=== PATIENT | female | born 1990 ===

== ENCOUNTER 2017-06-11 01:11 | Inpatient (IN) | payer OTHER ==
[2017-06-11] MEDS ORDERED: Sodium Chloride 0.9% 1,000 ML IV STA ×2 (01:37→06:45)
--- NOTE | 2017-06-11 01:54 | ED PDOC ---
HPI: Back Time Seen by Provider: 06/11/17 01:29 Chief Complaint (Nursing): Back Pain Chief Complaint (Provider): flank pain History Per: Patient History/Exam Limitations: no limitations Onset/Duration Of Symptoms: Days (2), Waxing/Waning Current Symptoms Are (Timing): Still Present Additional History Per: Patient Additional Complaint(s): 27 y/o female presents with right flank pain x 2 days. Patient notes pain to start in right back and radiate to right abdomen. Denies fever, nausea/vomiting , chest pain, shortness of breath, palpitations, changes in bowel movements, dysuria, hematuria. No medication taken for pain relief thus far. Past Medical History Reviewed: Historical Data, Nursing Documentation, Vital Signs Vital Signs: Last Vital Signs Temp 98.6 F 06/11/17 01:32 Pulse 76 06/11/17 01:32 Resp 18 06/11/17 01:32 BP 120/78 06/11/17 01:32 Pulse Ox 100 06/11/17 01:32 - Medical History PMH: No Chronic Diseases - Surgical History Surgical History: Tonsillectomy - Family History Family History: States: Unknown Family Hx - Living Arrangements Living Arrangements: With Family - Home Medications Home Medications: Ambulatory Orders Medication Instructions Recorded No Known Home Med 06/11/17 - Allergies Allergies/Adverse Reactions: Allergies Allergy/AdvReac Type Severity Reaction Status Date / Time No Known Allergies Allergy Verified 06/11/17 01:32 Review of Systems ROS Statement: Except As Marked, All Systems Reviewed And Found Negative Gastrointestinal: Positive for: Abdominal Pain Musculoskeletal: Positive for: Back Pain Physical Exam - Reviewed Nursing Documentation Reviewed: Yes Vital Signs Reviewed: Yes - Physical Exam Appears: Positive for: Well, Non-toxic, No Acute Distress Head Exam: Positive for: ATRAUMATIC, NORMAL INSPECTION, NORMOCEPHALIC Skin: Positive for: Normal Color Eye Exam: Positive for: Normal appearance ENT: Positive for: Normal ENT Inspection Cardiovascular/Chest: Positive for: Regular Rate, Rhythm Respiratory: Positive for: Normal Breath Sounds Gastrointestinal/Abdominal: Positive for: Bowel Sounds, Soft, Tenderness (right flank) Back: Positive for: R CVA Tenderness Extremity: Positive for: Normal ROM Neurologic/Psych: Positive for: Alert, Oriented - Laboratory Results Result Diagrams: 06/11/17 01:39 06/11/17 01:39 - ECG O2 Sat by Pulse Oximetry: 100 - Progress ED Course And Treament: labs, urine, CT renal protocol EXAM: CT Abdomen and Pelvis Without Intravenous Contrast CLINICAL HISTORY: 27 years old, female; Pain; Abdominal pain; Flank; Right; Additional info: Right flank pain TECHNIQUE: Axial computed tomography images of the abdomen and pelvis without intravenous contrast. This CT exam was performed using one or more of the following dose reduction techniques: automated exposure control, adjustment of the mA and/or kV according to patient size, and/ or use of iterative reconstruction technique. Coronal and sagittal reformatted images were created and reviewed. COMPARISON: No relevant prior studies available. FINDINGS: Lower thorax: No acute findings. ABDOMEN: Liver: Unremarkable. Gallbladder and bile ducts: No calcified stones. No ductal dilation. Pancreas: Unremarkable. No ductal dilation. Spleen: Mild splenomegaly, AP dimension. Adrenals: No mass. Kidneys and ureters: Small calculus within RIGHT kidney. No hydronephrosis. Stomach and bowel: No definite mural thickening. No obstruction. Appendix: No findings to suggest acute appendicitis. PELVIS: Bladder: Unremarkable. No stones. Reproductive: Unremarkable as visualized. ABDOMEN and PELVIS: Intraperitoneal space: No significant fluid collection. No free air. Bones/joints: No acute fracture. Soft tissues: Unremarkable. Vasculature: Unremarkable. No aneurysm. Lymph nodes: No pathologically enlarged lymph nodes. IMPRESSION: 1. Nonobstructing renal calculus. 2. Incidental/non-acute findings are described above On re-eval, patient still with pain; tramadol PO ordered Patient notes improved after tramadol, but now with localized "burning" in RUQ. Patient offered u/s to rule out noncalcified gallstones/acute biliary process. Patient agreeable to stay. ED OBSERVATION Date of observation admission: 06/11/17 Time of observation admission: 03:39 - Observation admission statement Patient is being placed in observation because:: abdominal pain - Goals of Observation Goals of observation are:: obtain right upper quadrant u/s to rule out noncalcified gallbladder stones - Progress Note Progress Note: 06/11/17 03:40 Patient resting comfortably 06/11/17 05:00 Patient sleeping Disposition - Clinical Impression Clinical Impression: Rt flank pain - Patient ED Disposition Is Patient to be Admitted: No - Disposition Disposition: Transfer of Care Disposition Time: 06:00 Condition: STABLE Patient Signed Over To: Orbelyan,Gerasim A Handoff Comments: pending u/s
[2017-06-11 02:06] LABS: ALB/GLOB RATIO 1.1 (1.0-2.1); ALBUMIN 3.2 g/dL (3.5-5.0); ALT/SGPT 28 U/L (9-52); AST/SGOT 18 U/L (14-36); BLOOD UREA NITROGEN 9 mg/dl (7-17); CALCIUM 7.3 mg/dL (8.4-10.2); GFR AFRICAN-AMERICAN > 60; GFR NON-AFRICAN AMERICAN > 60; LIPASE 126 U/L (23-300)
[2017-06-11 02:11] LABS: SQUAMOUS EPITHIAL 2 /hpf (0-5); URINE BACTERIA OCC (<OCC); URINE BILIRUBIN NEGATIVE (NEGATIVE); URINE BLOOD SMALL (NEGATIVE); URINE CLARITY CLOUDY (Clear); URINE COLOR YELLOW (YELLOW); URINE GLUCOSE (UA) NEG (Normal); URINE LEUKOCYTE ESTERASE SMALL Leu/uL (Negative); URINE NITRATE NEGATIVE (NEGATIVE); URINE PROTEIN 30 mg/dL (NEGATIVE); URINE UROBILINOGEN 0.2-1.0 mg/dL (0.2-1.0)
[2017-06-11 02:27] LABS: HEMOGLOBIN 13.5 g/dL (12.0-16.0); RBC 4.8 Mil/uL (3.80-5.20); WHITE BLOOD COUNT 12.2 K/uL (4.8-10.8)
[2017-06-11 02:28] LABS: LYMPH % 34.2 % (20.0-40.0); MEAN CELL VOLUME 84.8 fl (81.0-99.0); MEAN PLATELET VOLUME 8.8 fl (7.2-11.7); MONO % 6.2 % (0.0-10.0); NEUT % 58.1 % (50.0-75.0); RED CELL DISTRIBUTION WIDTH 13.5 % (11.5-14.5)
[2017-06-11 02:29] LABS: BASO # 0.1 K/uL (0.0-0.2); BASO % 0.5 % (0.0-2.0); EOS # 0.1 K/uL (0.0-0.7); LYMPH # 4.2 K/uL (1.0-4.3); MONO # 0.8 K/uL (0.0-0.8); NEUT # 7.1 K/uL (1.8-7.0)
[2017-06-11] MEDS ORDERED: Potassium Chloride 20 mEq ER Tab PO ONE ×2 (02:29→02:45)
[2017-06-11] MEDS ORDERED: Oxycodone/Acetaminophen 5/325 mg Tab PO ONE (02:43)
[2017-06-11] MEDS ORDERED: Oxycodone/Acetaminophen 5/325 mg Tab ONE (02:46)
--- NOTE | 2017-06-11 05:53 | ED PDOC ---
- Laboratory Results Result Diagrams: 06/11/17 01:39 06/11/17 01:39 - ECG O2 Sat by Pulse Oximetry: 100 (RA) Pulse Ox Interpretation: Normal Medical Decision Making Medical Decision Making: Receiving Sign Out: Patient signed out to me by Fiorella Gaston PA-C pending RUQ US and final disposition. Scribe Attestation: Documented by Miesha Sherman, acting as a scribe for Yuriy Green MD. Provider Scribe Attestation: All medical record entries made by the Scribe were at my direction and personally dictated by me. I have reviewed the chart and agree that the record accurately reflects my personal performance of the history, physical exam, medical decision making, and the department course for this patient. I have also personally directed, reviewed, and agree with the discharge instructions and disposition. Disposition Discussed With Dr.: Jackson Dominguez Doctor Will See Patient In The: Hospital Counseled Patient/Family Regarding: Studies Performed, Diagnosis - Clinical Impression Clinical Impression: Rt flank pain, Calculus of gallbladder with other cholecystitis and obstruction - POA Present On Arrival: None - Disposition Disposition: Admitted as In-Patient Disposition Time: 07:00 Condition: FAIR ED OBSERVATION Date of observation admission: 06/11/17 Time of observation admission: 03:38 - Observation admission statement Patient is being placed in observation because:: Abdominal pain - Goals of Observation Goals of observation are:: Awaiting RUQ ultrasound. - Progress Note Progress Note: 06/11/17 06:22 Patient resting in room, no acute distress. 06/11/17 06:31 Addendum created by Alex Martinez MD on 06/11/2017 6:32 AM Eastern Time ([place] & [place]) Findings discussed and confirmed with technologist. Initial Report created on 06/11/2017 6:30 AM Eastern Time ([place] & [place]) EXAM: US Abdomen Limited, Right Upper Quadrant CLINICAL HISTORY: 27 years old, female; Pain; Abdominal pain; Generalized; Additional info: Ruq pain TECHNIQUE: Real-time ultrasound of the right upper quadrant with image documentation. COMPARISON: CT - ABD PELVIS W/O PO OR 06/11/2017 1:59:24 AM FINDINGS: Liver: Enlarged, 18.6 cm. Normal echogenicity. No mass. No intrahepatic bile duct dilatation. Gallbladder: Apparent nonmobile 1.7 x 1.3 cm stone within neck. 0.4 cm wall thickness (as per worksheet). No pericholecystic fluid. No sonographic De La O's sign. Common bile duct: No dilatation. No stones. Pancreas: Unremarkable as visualized. Right kidney: Normal echogenicity. No hydronephrosis. IMPRESSION: 1. Cholelithiasis with mild gallbladder wall thickening. Clinical correlation is needed. 2. Incidental/non-acute findings are described above. 06/11/17 06:[address] Dominguez, general surgeon monotype caster who is aware. Patient to be admitted under Dr. Dominguez's service. Call placed to medical or surgical instrument maker. 06/11/17 06:42 Case discussed with medical or surgical instrument maker who is aware of case. The resident will come to ED and evaluate the patient at bedside.
[2017-06-11] MEDS ORDERED: Piperacillin/Tazobact 3.375 GM in Sodium Chloride 0.9% 100 ML IVPB STA (06:37)
[2017-06-11] MEDS ORDERED: Morphine 4 MG/ML VIAL IVP ONE (06:45)
[2017-06-11] MEDS ORDERED: Piperacillin/Tazobact 3.375 gm Inj IVPB ONE ×2 (06:49→16:40)
--- NOTE | 2017-06-11 08:50 | CT ---
PROCEDURE: CT Abdomen and Pelvis without intravenous contrast HISTORY: right flank pain COMPARISON: None. TECHNIQUE: Without contrast.. Contrast Dose: 0 Radiation dose: Total exam DLP = 1099.59 mGy-cm. This CT exam was performed using one or more of the following dose reduction techniques: Automated exposure control, adjustment of the mA and/or kV according to patient size, and/or use of iterative reconstruction technique. FINDINGS: LOWER THORAX: Unremarkable. LIVER: Mild hepatomegaly. The liver measures up to 20.1 cm craniocaudal. Smooth contour. No mass. Normal attenuation. No biliary dilatation. GALLBLADDER AND BILE DUCTS: Unremarkable. PANCREAS: Unremarkable. No gross lesion or ductal dilatation. SPLEEN: Mild splenomegaly. The spleen measures up to 15 cm greatest dimension. No mass. ADRENALS: Unremarkable. No mass. KIDNEYS AND URETERS: Nonobstructing 4 mm right upper pole renal calculus. No left renal calculus. No hydronephrosis. No ureteral calculus. VASCULATURE: Unremarkable. No aortic aneurysm. BOWEL: Mild sigmoid diverticulosis without evidence of diverticulitis. No other abnormal bowel loops. No bowel obstruction. APPENDIX: Not identified. No secondary findings of appendicitis. PERITONEUM: Unremarkable. No free fluid. No free air. LYMPH NODES: No retroperitoneal or pelvic lymphadenopathy. Shotty subcentimeter mesenteric lymph nodes common nonspecific. BLADDER: Suboptimally distended. Grossly unremarkable. REPRODUCTIVE: Unremarkable uterus. BONES: No acute fracture. OTHER FINDINGS: None. IMPRESSION: Nonobstructing 4 mm right upper pole renal calculus. Nonspecific shotty subcentimeter lymph nodes within the small bowel mesenteric. Possible mesenteric adenitis. Mild hepatic splenomegaly. No additional abnormality. Preliminary interpretation of this examination was reported by Tengaged at 2:22 a.m. on 06/11/2017. There is concurrence of this report with the preliminary interpretation.
--- NOTE | 2017-06-11 09:35 | US ---
HISTORY: ruq pain COMPARISON: None. TECHNIQUE: Sonographic evaluation of the right upper quadrant of the abdomen. FINDINGS: LIVER: Measures 18.5 cm in length. Diffusely increased echogenicity of the liver parenchyma. Consistent with fatty infiltration. No mass. Smooth contour. No biliary dilatation. GALLBLADDER: Solitary gallstone identified within the gallbladder neck. No mural thickening. No pericholecystic fluid. Negative sonographic De La O sign. COMMON BILE DUCT: Measures 4 mm. No stones. No dilatation. PANCREAS: Unremarkable as visualized. No mass. No ductal dilatation. RIGHT KIDNEY: Measures 11.5 cm in length. Normal echogenicity. No calculus, mass, or hydronephrosis. AORTA: No aneurysmal dilatation. IVC: Unremarkable. OTHER FINDINGS: None . IMPRESSION: Hepatomegaly with diffuse fatty infiltration. Cholelithiasis with solitary stone in gallbladder neck. No evidence of cholecystitis. Otherwise unremarkable examination. Preliminary interpretation of this examination was reported by Anafore at 6:30 a.m. on 06/11/2017. There is concurrence of this report with the preliminary interpretation.
[2017-06-11] MEDS: Sodium Chloride 0.9% 1,000 ML IV SCH ×2 (13:04→23:34)
--- NOTE | 2017-06-11 13:10 | CP.PCM.PCO ---
Physician Communication Note - Physician Communication Note Physician Communication Note: OR today at 3PM for osiris calderon
--- NOTE | 2017-06-11 13:12 | CP.PCM.HP ---
History of Present Illness - History of Present Illness History of Present Illness: Surgery: Dr. Dominguez CC: 27F w. no pmh presents to ED w. RUQ / R back pain. Pt states that the pain began on Thursday. Pain is intermittent. Described as sharp. Pain is not related to diet. She denies any alleviating or aggravating factors. She denies N/V/D. No F/C. No ABREU/blurred vision. No CP/palpiations. No SOB/cough. No hematuria/ dysuria. U/S done in ED showed gallstone impacted in gallbladder neck. PMH: none PSH: tonsils Meds: None NKDA Social: No ETOH/tobacco/drugs Fhx: non-contributory Present on Admission - Present on Admission Any Indicators Present on Admission: No Review of Systems - Review of Systems All systems: reviewed and no additional remarkable complaints except (HPI) Past Patient History - Past Social History Smoking Status: Never Smoked - CARDIAC Hx Cardiac Disorders: No - MUSCULOSKELETAL/RHEUMATOLOGICAL Hx Falls: No - PSYCHIATRIC Hx Substance Use: No - SURGICAL HISTORY Hx Tonsillectomy: Yes Meds Allergies/Adverse Reactions: Allergies Allergy/AdvReac Type Severity Reaction Status Date / Time No Known Allergies Allergy Verified 06/11/17 01:32 Physical Exam - Constitutional Appears: Non-toxic, No Acute Distress - Head Exam Head Exam: ATRAUMATIC, NORMOCEPHALIC - Eye Exam Eye Exam: EOMI. absent: Scleral icterus - ENT Exam ENT Exam: Mucous Membranes Moist, Normal External Ear Exam - Neck Exam Neck exam: Positive for: Full Rom - Respiratory Exam Respiratory Exam: NORMAL BREATHING PATTERN. absent: Accessory Muscle Use, Respiratory Distress - GI/Abdominal Exam GI & Abdominal Exam: Soft, Tenderness (RUQ, +De La O). absent: Distended, Firm, Guarding, Rigid - Extremities Exam Extremities exam: Negative for: calf tenderness, pedal edema - Neurological Exam Neurological exam: Alert, Oriented x3 Results - Vital Signs Recent Vital Signs: Last Vital Signs Temp 98.6 F 06/11/17 10:10 Pulse 63 06/11/17 10:10 Resp 18 06/11/17 10:10 BP 110/54 L 06/11/17 10:10 Pulse Ox 99 06/11/17 10:10 - Labs Result Diagrams: 06/11/17 01:39 06/11/17 01:39 - Imaging and Cardiology US - abdomen Status: Image reviewed by me, Report reviewed by me Assessment & Plan - Assessment and Plan (Free Text) Assessment: 27F w. cholecystitis -OR this afternoon for lap yumiko. Risks and benefits d/w pt -NPO -IVF -abx -morphine -zofran -SCDs -d/w attending Zemaitis PGY3
[2017-06-11 14:40] LABS: INR 32.8 (0.9-1.2); PROTHROMBIN TIME 11.3 Seconds (9.8-13.1)
[2017-06-11] MEDS ORDERED: Bupivacaine 0.5% Inj(30mL) ONE (14:57)
[2017-06-11] MEDS ORDERED: Lidocaine 1% Inj (20ml) ONE (14:57)
[2017-06-11] MEDS ORDERED: Lactated Ringer's 1,000 ML IV ONE ×3 (16:33→19:25)
[2017-06-11] MEDS ORDERED: Propofol 10 mg/ml Inj (20 ML) ONE (16:35)
[2017-06-11] MEDS ORDERED: Succinylcholine 200 mg/10 ml Inj IV ONE (16:36)
[2017-06-11] MEDS ORDERED: Midazolam 2 MG/2 ML VIAL ONE (16:36)
[2017-06-11] MEDS ORDERED: Rocuronium 10 mg/ml (5 ml) ONE (16:36)
[2017-06-11] MEDS ORDERED: Neostigmine Methylsulfate 3mg/3ml Syringe IV ONE (17:34)
[2017-06-11] MEDS: Piperacillin/Tazobact 3.375 GM in Sodium Chloride 0.9% 100 ML IVPB SCH ×2 (17:48→21:40)
--- NOTE | 2017-06-11 18:03 | PCM.SURG1 ---
Surgeon's Initial Post Op Note - Surgeon's Notes Surgeon: Dr. Dominguez C D Area Supervisor: Dr. Marroquin PGY3, Dr. Rojas PGY1 Type of Anesthesia: General Endo Anesthesia Administered By: Maisha Pre-Operative Diagnosis: Cholecystitis Operative Findings: Same Post-Operative Diagnosis: Same Operation Performed: Laparoscopic Cholecystectomy Specimen/Specimens Removed: Gallbladder Estimated Blood Loss: EBL {In ML}: 10 Blood Products Given: N/A Drains Used: No Drains Post-Op Condition: Good Date of Surgery/Procedure: 06/11/17 Time of Surgery/Procedure: 18:04
[2017-06-11] MEDS ORDERED: Lactated Ringer's 1,000 ML IV SCH (18:09)
[2017-06-11] MEDS: HYDROmorphone 0.5 mg/0.5 ml ISec IVP PRN ×3 (18:25→19:10)
[2017-06-12] MEDS: Piperacillin/Tazobact 3.375 GM in Sodium Chloride 0.9% 100 ML IVPB SCH (04:30)
[2017-06-12 05:18] VITALS: RESP 20; TEMP 98.4
[2017-06-12] MEDS: Sodium Chloride 0.9% 1,000 ML IV SCH (07:06)
--- NOTE | 2017-06-12 08:28 | CP.PCM.DIS ---
Provider - Provider Date of Admission: 06/11/17 06:40 Attending physician: Jackson Dominguez MD Consults: Surgery: Jayce Dominguez Time Spent in preparation of Discharge (in minutes): 45 Hospital Course - Lab Results Lab Results: Most Recent Lab Values WBC 12.2 K/uL (4.8-10.8) H 06/11/17 01:39 RBC 4.80 Mil/uL (3.80-5.20) 06/11/17 01:39 Hgb 13.5 g/dL (12.0-16.0) 06/11/17 01:39 Hct 40.7 % (34.0-47.0) 06/11/17 01:39 MCV 84.8 fl (81.0-99.0) 06/11/17 01:39 MCH 28.0 pg (27.0-31.0) 06/11/17 01:39 MCHC 33.0 g/dL (33.0-37.0) 06/11/17 01:39 RDW 13.5 % (11.5-14.5) 06/11/17 01:39 Plt Count 261 K/uL (130-400) 06/11/17 01:39 MPV 8.8 fl (7.2-11.7) 06/11/17 01:39 Neut % (Auto) 58.1 % (50.0-75.0) 06/11/17 01:39 Lymph % (Auto) 34.2 % (20.0-40.0) 06/11/17 01:39 Imperial % (Auto) 6.2 % (0.0-10.0) 06/11/17 01:39 Eos % (Auto) 1.0 % (0.0-4.0) 06/11/17 01:39 Baso % (Auto) 0.5 % (0.0-2.0) 06/11/17 01:39 Neut # 7.1 K/uL (1.8-7.0) H 06/11/17 01:39 Lymph # 4.2 K/uL (1.0-4.3) 06/11/17 01:39 Imperial # 0.8 K/uL (0.0-0.8) 06/11/17 01:39 Eos # 0.1 K/uL (0.0-0.7) 06/11/17 01:39 Baso # 0.1 K/uL (0.0-0.2) 06/11/17 01:39 PT 11.3 Seconds (9.8-13.1) 06/11/17 13:58 INR 32.8 (0.9-1.2) H 06/11/17 13:58 APTT 1.0 Seconds (25.6-37.1) L 06/11/17 13:58 Sodium 144 mmol/l (132-148) 06/11/17 01:39 Potassium 3.2 MMOL/L (3.6-5.0) L 06/11/17 01:39 Chloride 116 mmol/L (98-107) H 06/11/17 01:39 Carbon Dioxide 20 mmol/L (22-30) L 06/11/17 01:39 Anion Gap 11 (10-20) 06/11/17 01:39 BUN 9 mg/dl (7-17) 06/11/17 01:39 Creatinine 0.5 mg/dL (0.7-1.2) L 06/11/17 01:39 Est GFR ( Amer) > 60 06/11/17 01:39 Est GFR (Non-Af Amer) > 60 06/11/17 01:39 Random Glucose 89 mg/dL (65-105) 06/11/17 01:39 Calcium 7.3 mg/dL (8.4-10.2) L 06/11/17 01:39 Total Bilirubin 0.3 mg/dl (0.2-1.3) 06/11/17 01:39 AST 18 U/L (14-36) 06/11/17 01:39 ALT 28 U/L (9-52) 06/11/17 01:39 Alkaline Phosphatase 70 U/L (38-126) 06/11/17 01:39 Total Protein 6.2 G/DL (6.3-8.2) L 06/11/17 01:39 Albumin 3.2 g/dL (3.5-5.0) L 06/11/17 01:39 Globulin 2.9 gm/dL (2.2-3.9) 06/11/17 01:39 Albumin/Globulin Ratio 1.1 (1.0-2.1) 06/11/17 01:39 Lipase 126 U/L (23-300) 06/11/17 01:39 Urine Color Yellow (YELLOW) 06/11/17 01:55 Urine Clarity Cloudy (Clear) 06/11/17 01:55 Urine pH 6.0 (5.0-8.0) 06/11/17 01:55 Ur Specific [place] 1.024 (1.003-1.030) 06/11/17 01:55 Urine Protein 30 mg/dL (NEGATIVE) 06/11/17 01:55 Urine Glucose (UA) Neg mg/dL (Normal) 06/11/17 01:55 Urine Ketones Negative mg/dL (NEGATIVE) 06/11/17 01:55 Urine Blood Small (NEGATIVE) 06/11/17 01:55 Urine Nitrate Negative (NEGATIVE) 06/11/17 01:55 Urine Bilirubin Negative (NEGATIVE) 06/11/17 01:55 Urine Urobilinogen 0.2-1.0 mg/dL (0.2-1.0) 06/11/17 01:55 Ur Leukocyte Esterase Small Leann/uL (Negative) 06/11/17 01:55 Urine RBC (Auto) 2 /hpf (0-3) 06/11/17 01:55 Urine Microscopic WBC 3 /hpf (0-5) 06/11/17 01:55 Ur Squamous Epith Cells 2 /hpf (0-5) 06/11/17 01:55 Urine Bacteria Occ (<OCC) H 06/11/17 01:55 - Hospital Course Hospital Course: 27yo F admitted to the hospital for RUQ pain. Found to have cholelithiasis on Abd US and WBC elevated to 12.2. Patient taken to the OR for laparoscopic cholecystectomy. Surgery was uncomplicated. Post-operatively, patient progressed well with no complaints. Patient was cleared for discharge from surgical standpoint. Upon Discharge: Patient is cleared for discharge 1. Follow up with Dr. Dominguez in clinic in 10 days. (Call for appointment) 2. Use pain medication as needed, sparingly 3. You may shower starting tomorrow. Do not remove steri-strips. No soaking, swimming 4. No heavy lifting for 4 weeks 5. You may return to work 6. Return to the ER with any concerning symptoms. New Prescriptions: Toradol 10mg PO q6h #20/0 Discharge Exam - Head Exam Head Exam: ATRAUMATIC, NORMAL INSPECTION, NORMOCEPHALIC - Eye Exam Eye Exam: EOMI, Normal appearance - Respiratory Exam Respiratory Exam: NORMAL BREATHING PATTERN, UNREMARKABLE - Cardiovascular Exam Cardiovascular Exam: absent: JVD - GI/Abdominal Exam GI & Abdominal Exam: Soft, Tenderness (Mild milo-incisional tenderness). absent : Distended, Guarding, Mass, Rebound, Rigid Additional comments: Dressing clean, dry and intact. - Extremities Exam Extremities exam: normal inspection - Neurological Exam Neurological exam: Alert, Normal Gait, Oriented x3 - Psychiatric Exam Psychiatric exam: Normal Affect, Normal Mood - Skin Skin Exam: Dry, Intact, Normal Color, Warm Discharge Plan - Discharge Medications Prescriptions: Ketorolac Tromethamine [Toradol] 10 mg PO Q6 #20 tab - Follow Up Plan Condition: FAIR Disposition: HOME/ ROUTINE Instructions: Gallstones (GEN), How To Wash Your Hands (GEN) Additional Instructions: Patient is cleared for discharge 1. Follow up with Dr. Dominguez in clinic in 10 days. (Call for appointment) 2. Use pain medication as needed, sparingly 3. You may shower starting tomorrow. Do not remove steri-strips. No soaking, swimming 4. No heavy lifting for 4 weeks 5. You may return to work 6. Return to the ER with any concerning symptoms. New Prescriptions: Toradol 10mg PO q6h #20/0 Referrals: Jackson Dominguez MD [Staff Provider] -
[2017-06-12 08:34] VITALS: BP 119/77; PULSE 85; O2SAT 95
--- NOTE | 2017-06-12 17:52 | OP ---
PROCEDURE DATE: 06/11/2017 SURGEON: Dr. Dominguez. PHYSIOTHERAPIST'S ASSISTANT: Dr. Marroquin and Dr. Rojas. ANESTHESIA: General, Dr. Kelly PREOPERATIVE DIAGNOSIS: Cholecystitis. POSTOPERATIVE DIAGNOSIS: Cholecystitis. PROCEDURE: Laparoscopic cholecystectomy. DESCRIPTION OF OPERATION: With the patient in the supine position, under adequate general anesthesia, the abdomen was prepped and draped in the usual sterile manner. Veress needle puncture was performed at the umbilicus with insufflation to 15 cm of water pressure of CO2 and a 10 mm laparoscopic trocar was inserted via an infraumbilical incision. Under direct vision, additional trocars were inserted at the epigastrium and right costal margin. The gallbladder was visualized, it was softly distended, but not acutely inflamed. The gallbladder fundus was grasped and elevated. The infundibulum was grasped and retracted laterally. The cystic duct was identified and dissected. An anterior branch of the cystic artery was identified passing anterior to the cystic duct and this was dissected and then triply clipped and divided to better expose the cystic duct. The cystic duct was then dissected and cleared down towards the common bile duct. The cystic duct was then triply clipped and divided closer to the gallbladder. The posterior branch of the cystic artery was then identified and dissected and this was triply clipped and divided and the gallbladder was dissected free of the liver bed using the electrocautery. The liver bed was inspected for hemostasis and the dissection was completed. The gallbladder was placed in a specimen retrieval bag and removed. The umbilical port site was noted to contain at least one moderately sized stone. The right upper quadrant was irrigated and suctioned. The pneumoperitoneum was released and the trocars were removed. The umbilical port site was closed with a figure of eight fascial suture of 0 Vicryl. All incisions were closed with 4-0 Monocryl subcuticular sutures and Steri-Strips. Dry sterile dressings were applied. The patient tolerated the procedure well and transferred to recovery room in stable condition. Estimated blood loss for the procedure was 10 mL. Jackson Dominguez MD AMANDA
== END 2017-06-12 12:50 | disposition home or self-care (01) | DRG 419 ==
LOC: H.ER 01:11 → H.EROBSV 03:38 → OBSVTOIN 06:40 → H.ERHOLD 06:40 → H.MEDSURG1 10:08
PROVIDERS: ADMIT Specialist; ATTEND Specialist
PROC: 0FT44ZZ Resection of Gallbladder, Percutaneous Endoscopic Approach (ICD-10-PCS; principal; 2017-06-11 16:00)
DX: K80.10 Calculus of gallbladder with chronic cholecystitis without obstruction (principal); N20.0 Calculus of kidney

== ENCOUNTER 2017-08-13 11:36 | Observation (INO) | payer OTHER ==
[2017-08-13 11:55] VITALS: TEMP 98.2
[2017-08-13 11:56] VITALS: BMI 37.1
[2017-08-13] MEDS ORDERED: Sodium Chloride 0.9% 1,000 ML IV STA (12:26)
--- NOTE | 2017-08-13 12:30 | ED PDOC ---
HPI: General Adult Time Seen by Provider: 08/13/17 12:05 Chief Complaint (Nursing): Back Pain Chief Complaint (Provider): Abd pain History Per: Patient History/Exam Limitations: no limitations Onset/Duration Of Symptoms: Days (Today) Current Symptoms Are (Timing): Still Present Additional Complaint(s): Abd pain righ lower coming from her back right. Pt. states started suddenly. No dysuria. No weakness, headaches, dizziness, dyspnea, fever, cough. Has chest pain today. Mild. No calf pain, long distance travel, or hormone tx. Past Medical History Reviewed: Nursing Documentation, Vital Signs Vital Signs: Last Vital Signs Temp 98.2 F 08/13/17 11:55 Pulse 88 08/13/17 12:10 Resp 16 08/13/17 11:55 BP 135/69 08/13/17 11:55 Pulse Ox 99 08/13/17 16:35 - Medical History PMH: No Chronic Diseases - Surgical History Surgical History: Cholecystectomy, Tonsillectomy - Family History Family History: States: Unknown Family Hx - Living Arrangements Living Arrangements: With Family - Social History Current smoker - smoking cessation education provided: No Alcohol: None Drugs: Denies - Home Medications Home Medications: Ambulatory Orders Medication Instructions Recorded Ketorolac Tromethamine [Toradol] 10 mg PO Q6 #20 tab 06/12/17 - Allergies Allergies/Adverse Reactions: Allergies Allergy/AdvReac Type Severity Reaction Status Date / Time No Known Allergies Allergy Verified 06/11/17 01:32 Review of Systems ROS Statement: Except As Marked, All Systems Reviewed And Found Negative Cardiovascular: Positive for: Chest Pain Gastrointestinal: Positive for: Nausea, Abdominal Pain Physical Exam - Reviewed Nursing Documentation Reviewed: Yes Vital Signs Reviewed: Yes - Physical Exam Appears: Positive for: Non-toxic, No Acute Distress Head Exam: Positive for: ATRAUMATIC, NORMAL INSPECTION, NORMOCEPHALIC Skin: Positive for: Normal Color, Warm, DRY Eye Exam: Positive for: EOMI, Normal appearance, PERRL ENT: Positive for: Normal ENT Inspection Neck: Positive for: Normal, Painless ROM Cardiovascular/Chest: Positive for: Regular Rate, Rhythm Respiratory: Positive for: CNT, Normal Breath Sounds Gastrointestinal/Abdominal: Positive for: Bowel Sounds, Soft, Tenderness (mild diffuse). Negative for: Distended, Guarding, Rebound Back: Positive for: Normal Inspection. Negative for: L CVA Tenderness, R CVA Tenderness Extremity: Positive for: Normal ROM. Negative for: Tenderness, Pedal Edema Neurologic/Psych: Positive for: Alert, Oriented - Laboratory Results Result Diagrams: 08/13/17 12:45 08/13/17 12:45 Interpretation Of Abn Labs: 12.5 wbc; dimer elevated - ECG ECG: Positive for: Interpreted By Me, Viewed By Me ECG Rhythm: Positive for: Normal QRS, Normal ST Segment, Sinus Rhythm O2 Sat by Pulse Oximetry: 99 Pulse Ox Interpretation: Normal - Radiology X-Ray: Read By Radiologist X-Ray Interpretation: No Acute Disease - CT Scan/US ct Other Rad Studies (CT/US): Read By Radiologist Other Rad Interpretation: 4mm stone prox ureter cta Other Rad Studies (CT/US): Read By Radiologist Other Rad Interpretation: no acute ED OBSERVATION Discharge: Yes Date of observation admission: 08/13/17 Time of observation admission: 12:27 - Observation admission statement Patient is being placed in observation because:: abd pain - Goals of Observation Goals of observation are:: eval pain - Progress Note Progress Note: 08/13/17 17:37 Feels much better. Fu with pcp. AAOx3. Urology fu. Tolerated po. Disposition - Clinical Impression Clinical Impression: Urolithiasis - Patient ED Disposition Is Patient to be Admitted: No Counseled Patient/Family Regarding: Studies Performed, Diagnosis, Need For Followup, Rx Given - Disposition Disposition: Routine/Home Disposition Time: 17:38 Condition: STABLE
[2017-08-13 12:57] LABS: BASO # 0.1 K/uL (0.0-0.2); BASO % 0.5 % (0.0-2.0); EOS # 0.1 K/uL (0.0-0.7); EOS % 0.4 % (0.0-4.0); HEMATOCRIT 41.1 % (34.0-47.0); LYMPH # 3.9 K/uL (1.0-4.3); LYMPH % 31.1 % (20.0-40.0); MEAN CELL VOLUME 83.5 fl (81.0-99.0); MEAN CORPUSCULAR HEMOGLOBIN 28.5 pg (27.0-31.0); MEAN CORPUSCULAR HGB CONC 34.2 g/dL (33.0-37.0); MEAN PLATELET VOLUME 8.7 fl (7.2-11.7); MONO # 0.7 K/uL (0.0-0.8); MONO % 5.5 % (0.0-10.0); NEUT # 7.8 K/uL (1.8-7.0); NEUT % 62.5 % (50.0-75.0); NRBC % 0.1 % (0.0-0.0); RED CELL DISTRIBUTION WIDTH 13.7 % (11.5-14.5); WHITE BLOOD COUNT 12.5 K/uL (4.8-10.8)
[2017-08-13 13:05] LABS: ALB/GLOB RATIO 1.2 (1.0-2.1); ALKALINE PHOSPHATASE 98 U/L (38-126); ALT/SGPT 24 U/L (9-52); AST/SGOT 25 U/L (14-36); BILIRUBIN,TOTAL 0.8 mg/dl (0.2-1.3); BLOOD UREA NITROGEN 11 mg/dl (7-17); CALCIUM 9.7 mg/dL (8.4-10.2); CARBON DIOXIDE 20 mmol/L (22-30); CHLORIDE 110 mmol/L (98-107); GFR AFRICAN-AMERICAN > 60; GLUCOSE,RANDOM 84 mg/dL (65-105); LIPASE 69 U/L (23-300); POTASSIUM 4.3 MMOL/L (3.6-5.0); SODIUM 144 mmol/l (132-148); TOTAL PROTEIN 8.5 G/DL (6.3-8.2)
--- NOTE | 2017-08-13 14:02 | CT ---
PROCEDURE: CT Abdomen and Pelvis without intravenous contrast HISTORY: R/O stone COMPARISON: Comparison is made to the previous study dated 06/11/2017 TECHNIQUE: Axial and reformatted coronal and sagittal CT images of the abdomen and pelvis were obtained without IV or oral contrast administration.. Contrast Dose: 0 Radiation dose: Total exam DLP = 1148.98 mGy-cm. This CT exam was performed using one or more of the following dose reduction techniques: Automated exposure control, adjustment of the mA and/or kV according to patient size, and/or use of iterative reconstruction technique. FINDINGS: LOWER THORAX: Unremarkable. LIVER: Unremarkable. No gross lesion or ductal dilatation. GALLBLADDER AND BILE DUCTS: Status post cholecystectomy. PANCREAS: Unremarkable. No gross lesion or ductal dilatation. SPLEEN: Unremarkable. ADRENALS: Unremarkable. No mass. KIDNEYS AND URETERS: The previously seen 4 millimeter calculus at the right kidney narrow is seen at the proximal right ureter and associated with mild right hydronephrosis. There is mild right perinephric stranding. The left kidney is unremarkable. The left kidney is grossly unremarkable. VASCULATURE: Unremarkable. No aortic aneurysm. BOWEL: Unremarkable. No obstruction. No gross mural thickening. APPENDIX: Unremarkable. Normal appendix. PERITONEUM: Unremarkable. No free fluid. No free air. LYMPH NODES: Unremarkable. No enlarged lymph nodes. BLADDER: Unremarkable. REPRODUCTIVE: Unremarkable. BONES: No acute fracture. OTHER FINDINGS: None. IMPRESSION: The previously seen 4 millimeter calculus at the right kidney has moved and noted now at the proximal right ureter resulting in mild right hydronephrosis. Otherwise no significant interval change since the previous exam.
--- NOTE | 2017-08-13 14:22 | RAD ---
HISTORY: Chest pain COMPARISON: No prior. FINDINGS: LUNGS: The lungs are clear. PLEURA: No significant pleural effusion identified, no pneumothorax apparent. CARDIOVASCULAR: Normal. OSSEOUS STRUCTURES: No significant abnormalities. VISUALIZED UPPER ABDOMEN: Normal. OTHER FINDINGS: None. IMPRESSION: No active pulmonary disease.
--- NOTE | 2017-08-13 16:07 | CARD ---
APPROVED REPORT EKG Measurement Heart [id number] <Conclusion> Normal sinus rhythm with sinus arrhythmia Normal ECG
[2017-08-13] MEDS ORDERED: Sodium Chloride 0.9% 50 ML IV ONE (16:10)
[2017-08-13] MEDS ORDERED: Iodixanol 320 MG/ML 100 ML BOTTLE IV ONE (16:10)
--- NOTE | 2017-08-13 16:53 | CT ---
PROCEDURE: CT Chest with contrast (Pulmonary Angiogram) HISTORY: Chest pain COMPARISON: Plain radiographs performed the same day. TECHNIQUE: Axial computed tomography images were obtained of the chest in the pulmonary arterial phase of enhancement. Coronal and sagittal reformatted images were created and reviewed. Intravenous contrast dose: 90 mL Visipaque 320 Radiation dose: Total exam DLP = 352.95 MGy-cm. This CT exam was performed using one or more of the following dose reduction techniques: Automated exposure control, adjustment of the mA and/or kV according to patient size, and/or use of iterative reconstruction technique. FINDINGS: PULMONARY ARTERIES: There are no central filling defects in the pulmonary arteries. AORTA: No thoracic aortic aneurysm or aortic dissection. LUNGS: The lungs are well inflated. There is mosaic attenuation in the lungs. No focal consolidation, mass or endobronchial lesion. PLEURAL SPACES: No effusion or pneumothorax. HEART: The heart is normal in size. No pericardial effusion. LYMPH NODES: No pathologic lymphadenopathy. BONES, CHEST WALL: Unremarkable. No fracture or destructive lesion OTHER FINDINGS: Unremarkable. IMPRESSION: No CTA evidence for acute pulmonary embolism. Mosaic attenuation in the lungs is nonspecific and could be seen with obstructive small airway disease, occlusive vascular disease or nonspecific parenchymal infection/inflammation.
[2017-08-13 18:11] VITALS: BP 110/62; PULSE 78; RESP 18; O2SAT 98
== END 2017-08-13 18:11 | disposition home or self-care (01) ==
LOC: H.ER 11:36 → H.EROBSV 12:26
PROVIDERS: ADMIT Emergency Medicine; ATTEND Emergency Medicine
DX: N20.9 Urinary calculus, unspecified (principal); R07.9 Chest pain, unspecified
CPT/HCPCS: 36415; 71010; 71275; 74176; 80053; 81025; 83690; 84484; 85025; 85378; 93005; 96361; 96374; 96375; 96376; 99285; G0378; J1885; J2270; J2405; J7040; Q9967